=== PATIENT | male | born 1985 | race Caucasian/White ===

== ENCOUNTER 2016-08-01 14:30 | Emergency (ER) | payer OTHER ==
[2016-08-01 14:41] VITALS: BP 137/71; PULSE 81; RESP 16; TEMP 97.5; O2SAT 94
--- NOTE | 2016-08-01 14:57 | PD ---
HPI Chief Complaint: OD/ Ingestion Time Seen by Provider: 14:52 Travel History International Travel<30 days: No Contact w/Intl Traveler<30days: No Traveled to known affect area: No History of Present Illness HPI Patient is a 31-year-old male with polysubstance abuse here with altered mental status. Reportedly snorted it 4 tablets of 10/325 Lortab between 10 AM and noon in an attempt to get high. This is not a suicide is sent. The became altered. EMS was called and was administered 0.4 mg Narcan with improvement of his mentation. Patient denies any alcohol use today or any other illicit substances. Denies any complaints at this time. PFSH Past Medical History ADHD: Yes Anxiety: Yes Diminished Hearing: No Psychiatric: Yes (ANXIETY PER PATIENT) Respiratory: Yes (broken nose) Integumentary: Yes (stitches) Immunizations Current: Yes Seizures: Yes Past Surgical History Abdominal Surgery: Yes (HERNIA REPAIR) Other Surgery: Yes (ganglion cyst removed from left wrist) Social History Alcohol Use: Yes (WEEKLY) Tobacco Use: Yes (1 / PPD) Substance Use: Yes (ALCOHOL, PILLS) Allergies-Medications (Allergen,Severity, Reaction): Coded Allergies: No Known Allergies (Unverified , 03/16/16) Reported Meds & Prescriptions Reported Meds & Active Scripts Active No Active Prescriptions or Reported Medications Review of Systems Except as stated in HPI: all other systems reviewed are Neg Physical Exam Narrative GENERAL: Thin male in no acute distress SKIN: Focused skin assessment warm/dry. HEAD: Normocephalic. EYES: Pupils equal and round. 2-3 mm. No scleral icterus. No injection or drainage. ENT: No nasal bleeding or discharge. Mucous membranes pink and moist. NECK: Supple CARDIOVASCULAR: Regular rate and rhythm. No murmur appreciated. RESPIRATORY: No accessory muscle use. Clear to auscultation. Breath sounds equal bilaterally. GASTROINTESTINAL: Abdomen soft, non-tender, nondistended. MUSCULOSKELETAL: No obvious deformities. No edema. NEUROLOGICAL: Awake and alert. No obvious cranial nerve deficits. Motor grossly within normal limits. Normal speech. PSYCHIATRIC: insight and judgment poor Data Data Last Documented VS Vital Signs Date Time Temp Pulse Resp B/P Pulse Ox O2 Delivery O2 Flow Rate FiO2 08/01/16 17:08 58 16 112/67 99 Nasal Cannula 2 08/01/16 14:41 97.5 Orders Electrocardiogram (08/01/16 14:56) Basic Metabolic Panel (Bmp) (08/01/16 14:56) Complete Blood Count With Diff (08/01/16 14:56) Ecg Monitoring (08/01/16 14:56) Iv Access Insert/Monitor (08/01/16 14:56) Oximetry (08/01/16 14:56) Sodium Chloride 0.9% Flush (Ns Flush) (08/01/16 15:00) Drug Screen, Random Urine (08/01/16 14:56) Alcohol (Ethanol) (08/01/16 14:56) Labs Laboratory Tests Test 08/01/16 14:59 White Blood Count 12.8 TH/MM3 Red Blood Count 4.42 MIL/MM3 Hemoglobin 13.8 GM/DL Hematocrit 39.4 % Mean Corpuscular Volume 89.1 FL Mean Corpuscular Hemoglobin 31.3 PG Mean Corpuscular Hemoglobin 35.1 % Concent Red Cell Distribution Width 13.8 % Platelet Count 176 TH/MM3 Mean Platelet Volume 8.8 FL Neutrophils (%) (Auto) 66.6 % Lymphocytes (%) (Auto) 24.1 % Monocytes (%) (Auto) 7.2 % Eosinophils (%) (Auto) 1.6 % Basophils (%) (Auto) 0.5 % Neutrophils # (Auto) 8.5 TH/MM3 Lymphocytes # (Auto) 3.1 TH/MM3 Monocytes # (Auto) 0.9 TH/MM3 Eosinophils # (Auto) 0.2 TH/MM3 Basophils # (Auto) 0.1 TH/MM3 CBC Comment DIFF FINAL Differential Comment Sodium Level 139 MEQ/L Potassium Level 3.5 MEQ/L Chloride Level 101 MEQ/L Carbon Dioxide Level 30.8 MEQ/L Anion Gap 7 MEQ/L Blood Urea Nitrogen 31 MG/DL Creatinine 1.34 MG/DL Estimat Glomerular Filtration 62 ML/MIN Rate Random Glucose 128 MG/DL Calcium Level 8.1 MG/DL Ethyl Alcohol Level LESS THAN 3 MG/DL MDM Medical Decision Making Medical Screen Exam Complete: Yes Emergency Medical Condition: Yes Medical Record Reviewed: Yes Differential Diagnosis 31-year-old male with history of polysubstance abuse here with overdose, accidental. Differential includes overdose, polysubstance abuse, electrolyte abnormality, symptomatic anemia, alcohol intoxication. Narrative Course Patient presented monitor, IV established and blood obtained. A twelve-lead EKG shows sinus rhythm without notable ST or T-wave abnormalities and normal intervals. Patient was observed on telemetry, without evidence of hypoxemia or hypoventilation. CBC, BMP, urine drug screen and blood alcohol level unremarkable. Patient was monitored for 3 hours without any change in mental status, hypoventilation, able to ambulate independently in the emergency department. Again states that this is recreational use and not intentional overdose. Patient will be discharged home. Diagnosis Primary Impression: Opioid overdose Qualified Code: T40.2X1A - Opioid overdose, accidental or unintentional, initial encounter Additional Impression: Polysubstance abuse Referrals: [facility] call for appointment Additional Instructions: Stop using drugs. Seek outpatient management for your substance abuse. Med/Other Pt SpecificInfo: No Change to Meds Scripts No Active Prescriptions or Reported Meds Disposition: 01 DISCHARGE HOME Condition: Stable Li Anthony MD Aug 01, 2016 14:57
[2016-08-01] MEDS ORDERED: SODIUM CHLORIDE 0.9% FLUSH 10 ML FLUSH IVF PRN (15:00)
[2016-08-01 15:34] VITALS: O2SAT 97
[2016-08-01 15:53] LABS: AUTOMATED NEUTROPHIL # 8.5 TH/MM3 (1.8-7.7); BASOPHIL # 0.1 TH/MM3 (0-0.2); BASOPHIL % 0.5 % (0.0-2.0); EOSINOPHIL # 0.2 TH/MM3 (0-0.4); EOSINOPHIL % 1.6 % (0.0-4.0); HEMATOCRIT 39.4 % (39.0-51.0); HEMO FLAGS DIFF FINAL; LYMPH % 24.1 % (9.0-44.0); LYMPHOCYTE # 3.1 TH/MM3 (1.0-4.8); MEAN CELL VOLUME 89.1 FL (80.0-100.0); MEAN CORPUSCULAR HEMOGLOBIN 31.3 PG (27.0-34.0); MEAN CORPUSCULAR HGB CONC 35.1 % (32.0-36.0); MONO % 7.2 % (0.0-8.0); NEUT % 66.6 % (16.0-70.0); PLATELET COUNT 176 TH/MM3 (150-450); RED BLOOD COUNT 4.42 MIL/MM3 (4.50-5.90); RED CELL DISTRIBUTION WIDTH 13.8 % (11.6-17.2); WHITE BLOOD COUNT 12.8 TH/MM3 (4.0-11.0)
[2016-08-01 16:04] LABS: ANION GAP 7 MEQ/L (5-15); BICARBONATE 30.8 MEQ/L (21.0-32.0); BLOOD UREA NITROGEN 31 MG/DL (7-18); CHLORIDE 101 MEQ/L (98-107); GLOMERULAR FILTRATION RATE 62 ML/MIN (>89); POTASSIUM 3.5 MEQ/L (3.5-5.1); SODIUM (NA) 139 MEQ/L (136-145)
[2016-08-01 17:08] VITALS: BP 112/67; PULSE 58; RESP 16; O2SAT 99
[2016-08-01 17:43] VITALS: BP 112/60
--- NOTE | 2016-08-02 09:00 | EKG ---
Date Performed: 08/01/2016 Time Performed: 14:52:28 PTAGE: 31 years EKG: Sinus rhythm POSSIBLE RIGHT VENTRICULAR CONDUCTION DELAY BORDERLINE ECG NO PREVIOUS TRACING DOCTOR: Vinh Grace Interpretating Date/Time 08/02/2016 08:58:41
== END 2016-08-01 18:20 | disposition home or self-care (01) ==
LOC: NEPE 14:30
DX: T40.2X1A Poisoning by other opioids, accidental (unintentional), initial encounter (principal); F17.210 Nicotine dependence, cigarettes, uncomplicated; F10.10 Alcohol abuse, uncomplicated; F90.9 Attention-deficit hyperactivity disorder, unspecified type; F41.9 Anxiety disorder, unspecified
CPT/HCPCS: 80048; 80307; 85025; 93005